=== PATIENT | female | born 2005 | race Caucasian/White ===

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

== ENCOUNTER 2024-12-28 05:12 | Emergency (ER) | payer OTHER ==
[~2024-12-28] VITALS: Ht 175.3 cm; Wt 50.0 kg
[~2024-12-28 05:12] MED LIST changes: +ULTRAM50 MG PO; +VALTREX1000 MG PO; +VISTARIL25 MG PO
[2024-12-28] MEDS ORDERED: SILVER SULFADIAZINE 400 GM HOME.PACK TOP ONE (05:30)
[2024-12-28] MEDS ORDERED: DIPHTH,PERTUSS(ACELL),TET VAC 0.5 ML SYRINGE IM ONE (05:30)
[2024-12-28 05:52] VITALS: BP 124/72
== END 2024-12-28 05:54 | disposition home or self-care (01) ==
LOC: ED 05:12
DX: T21.21XA Burn of second degree of chest wall, initial encounter (principal); X08.8XXA Exposure to other specified smoke, fire and flames, initial encounter; Z23 Encounter for immunization
CPT/HCPCS: 16020; 90471; 90715; 99283-25

== ENCOUNTER 2025-01-03 10:49 | Emergency (ER) | payer OTHER ==
[~2025-01-03] VITALS: Ht 175.3 cm; Wt 60.2 kg
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
[2025-01-03] MEDS ORDERED: NALTREXONE HCL50 MG PO (11:06)
[2025-01-03] MEDS ORDERED: MIRTAZAPINE15 MG PO (11:06)
[2025-01-03] MEDS ORDERED: BUPROPION HCL150 M2 PO (11:06)
[2025-01-03] MEDS ORDERED: AMOX TR-K CLV1 EAC1 PO (11:24)
[2025-01-03 11:42] VITALS: BP 121/80
== END 2025-01-03 11:49 | disposition home or self-care (01) ==
LOC: ED 10:49
DX: K02.9 Dental caries, unspecified (principal); K08.89 Other specified disorders of teeth and supporting structures; Z79.899 Other long term (current) drug therapy
CPT/HCPCS: 99282